=== PATIENT | female | born 1965 | race Caucasian/White ===

== ENCOUNTER 2020-12-30 17:37 | Inpatient (IN) | payer OTHER ==
[~2020-12-30] VITALS: Ht 165.1 cm; Wt 122.5 kg
[2020-12-30] MEDS ORDERED: SIMVASTATIN80 MG ×2 (17:51→17:52)
[2020-12-30] MEDS ORDERED: FORTAMET1000 MG (17:51)
[2020-12-30] MEDS ORDERED: ACID REDUCER20 M1 (17:52)
[2020-12-30] MEDS ORDERED: GLIPIZIDE XL2.5 MG (17:52)
--- NOTE | 2020-12-30 17:53 | NUR ---
SE RECIBE PACIENTE FEMENINAALERTA Y ORIENTADA EN [place] ESFERAS. PACIENTE LLEGA A ANTONIO DE EMERGENCIAS POR REFERIDO MEDICO PARA REMOCION DE DRENAJE. DR Mitzi JAMESON. SE UBICA PACIENTE EN OBSERVACION.
--- NOTE | 2020-12-30 18:20 | NUR ---
SE ORIENTA PTE SOBRE TX MEDICO EL CUAL REFIERE ENTENDER.SE LE EXTRAEN MUESTRAS BAJO MEDIDAS ASEPTICAS,SE CANALIZA Y SE COLOCA FLUIDOS DE MANTENIMIENTO.
[2020-12-31] MEDS ORDERED: GLIMEPIRIDE2 M1 (11:02)
[2020-12-31] MEDS ORDERED: SIMVASTATIN20 MG (11:03)
[2020-12-31] MEDS ORDERED: MACRODANTIN100 MG (11:03)
[2020-12-31] MEDS ORDERED: LOSARTAN POTASS25 MG (11:03)
== END 2021-01-01 13:56 | disposition home or self-care (01) | DRG 694 ==
LOC: ER 17:37 → SEC-K 20:44 → O/R 20:44 → SURG 12-31 19:26
PROVIDERS: ADMIT Urology; ATTEND Urology
PROC: BW2110Z Computerized Tomography (CT Scan) of Abdomen and Pelvis using Low Osmolar Contrast, Unenhanced and Enhanced (ICD-10-PCS; 2020-12-30)
PROC: 0TP98DZ Removal of Intraluminal Device from Ureter, Via Natural or Artificial Opening Endoscopic (ICD-10-PCS; principal; 2020-12-31 10:00)
DX: N13.30 Unspecified hydronephrosis (principal); Z20.822 Contact with and (suspected) exposure to COVID-19; R10.9 Unspecified abdominal pain